=== PATIENT | female | born 1980 | race Caucasian/White ===

== ENCOUNTER 2022-05-19 19:58 | Emergency (ER) | payer BC ==
[~2022-05-19] VITALS: Ht 180.3 cm; Wt 122.7 kg
[~2022-05-19 19:58] MED LIST: AMBIEN 10MG10 MG PO; CELEXA40 MG PO; DESYREL 50MG50 MG PO; LEXAPRO20 MG PO; ZITHROMAX Z PA250 MG PO
[2022-05-19 20:06] VITALS: TEMP 97.9
[2022-05-19 20:55] LABS: BASO % 0.3 % (0.0-2.0); GRAN # 6.3 K/mm3 (1.4-6.5); GRAN % 66.3 % (42.2-75.2); HEMATOCRIT 41.5 % (37.0-47.0); HEMOGLOBIN 13.9 g/dl (12.5-16.0); LYMPH # 2.7 K/mm3 (1.2-3.4); LYMPH % 28.7 % (20.0-51.0); MEAN CELL VOLUME 90 fl (80.0-100.0); MEAN CORPUSCULAR HEMOGLOBIN 30 pg (27-31); MEAN CORPUSCULAR HGB CONC 34 g/dl (33.0-37.0); MEAN PLATELET VOLUME 9.8 fl (7.4-10.4); MONO # 0.4 K/mm3 (0.1-0.6); MONO % 4.4 % (1.7-9.3); PLATELET COUNT 193 K/mm3 (130-400); RED BLOOD COUNT 4.59 M/mm3 (4.10-5.30); REDCELL DISTRIBUTION WIDTH-CV 12.3 % (11.5-14.5)
[2022-05-19 21:25] LABS: BILIRUBIN,TOTAL 0.4 mg/dL (0.2-1.2); CALCIUM 9.5 mg/dL (8.4-10.2); CREATININE, serum 0.88 mg/dL (0.57-1.11); POTASSIUM 3.9 mmol/L (3.5-4.5); TOTAL PROTEIN 7.2 gm/dL (6.2-8.1)
[2022-05-19 21:47] LABS: COLLECTION METHOD CLEAN CATCH
[2022-05-19 21:58] LABS: MUCOUS Present (NOT PRESENT); URINE BACTERIA None Seen /hpf (NONE SEEN); URINE RBC 0-2 /hpf (0-2)
[2022-05-19 22:01] LABS: PH 5.5 (5.0-8.5); URINE APPEARANCE Clear (CLEAR/HAZY); URINE COLOR Yellow (YELLOW); URINE GLUCOSE 3+ (NEGATIVE); URINE KETONE 1+ (NEGATIVE); URINE PROTEIN(semi-quant) Negative (NEGATIVE); URINE UROBILINOGEN 0.2 E.U/dL (0.2-1.0)
[2022-05-19 22:02] LABS: URINE BLOOD Negative (NEGATIVE); URINE NITRATE Negative (NEGATIVE)
[2022-05-19 23:02] VITALS: BP 142/69; PULSE 92
[2022-05-19] MEDS ORDERED: GLUCOSE TEST ST1 DEV MC (23:02)
== END 2022-05-19 23:02 | disposition home or self-care (01) ==
LOC: COL.ER 19:58
PROVIDERS: Nurse Practitioner
DX: E11.65 Type 2 diabetes mellitus with hyperglycemia (principal); F17.210 Nicotine dependence, cigarettes, uncomplicated; Z79.84 Long term (current) use of oral hypoglycemic drugs
CPT/HCPCS: J7030

== ENCOUNTER → 2024-07-09 | Outpatient (CLI) | payer BC ==
[~2024-07-09] MED LIST changes: +GLUCOSE TEST ST1 DEV MC
== END ==
LOC: MC.RAD 09:24
DX: Z12.31 Encounter for screening mammogram for malignant neoplasm of breast (principal); N64.89 Other specified disorders of breast